=== PATIENT | male | born 1945 | race American Indian/Alaskan Native ===

== ENCOUNTER 2016-10-31 13:11 | Emergency (ER) | payer MEDICARE ==
[2016-10-31 14:41] LABS: Basophils % (Auto) 0.4 % (0.0-1.8); Eosinophils % (Auto) 0.8 % (0.0-4.3); Hematocrit 39.3 % (35.5-45.6); Hemoglobin 13.3 gm/dl (11.8-15.2); Mean Corpuscular HGB Conc 34 % (32-34); Mean Corpuscular Hemoglobin 29 pg (28-32); Mean Corpuscular Volume 87 fl (84-94); Platelet Count 146 K/mm3 (140-440); Red Blood Count 4.54 M/mm3 (3.65-5.03); Red Cell Distribution Width 14.5 % (13.2-15.2); White Blood Count 10.3 K/mm3 (4.5-11.0)
[2016-10-31 14:52] LABS: Anion Gap 19 mmol/L; BUN/Creatinine Ratio 10.55; Blood Urea Nitrogen 19 mg/dL (9-20); Calcium 9.2 mg/dL (8.4-10.2); Carbon Dioxide 23 mmol/L (22-30); Chloride 101.6 mmol/L (98-107); Glucose 221 mg/dL (75-100); INR 1.03 (0.87-1.13); Potassium 4.3 mmol/L (3.6-5.0); Sodium 139 mmol/L (137-145)
[2016-10-31] MEDS ORDERED: TESSALON PERLES PO ONE (21:34)
--- NOTE | 2016-10-31 21:58 | Emergency Department Report ---
ED Chest Pain HPI - General Chief Complaint: Chest Pain Stated Complaint: CHEST CONGESTION/COUGH AND COLD Time Seen by Provider: 10/31/16 21:24 Source: patient, family Mode of arrival: Ambulatory Limitations: No Limitations - History of Present Illness Initial Comments: 71 yo male with a past medical history of diabetes, [place] with stenting, hypertension, and chronic renal sufficiency presents to the hospital with complaints of chest pain and cough. Patient has had a dry cough for about 3 weeks but increased last 3 days. Patient complained of sharp chest pain while lying supine at night similar to his previous angina pain. Patient take 4 nitroglycerin last night stating that it helped relieve pain within 5 minutes of taking the medication. Last dose was at 3 AM. No chest pain reported while up and ambulating throughout the day today. No reports of fever, nausea, vomiting, or diaphoresis. Patient required angioplasty in April with additional stent placement and required replacement by Dr. Campos in May. His cardiologists are [facility]. Multiple family members with similar symptoms. - Related Data Home Medications Medication Instructions Recorded Confirmed Last Taken Allopurinol 1 tab PO DAILY 01/24/15 10/31/16 10/31/16 Aspirin/Dipyridamole [Aggrenox 25 1 cap PO DAILY 01/24/15 10/31/16 10/31/16 mg-200 mg Capsule] Famotidine 1 tab PO BID 01/24/15 10/31/16 10/31/16 Ferrous Sulfate 1 tab PO DAILY 01/24/15 10/31/16 10/31/16 Fish Oil + D3 Softgel 1 cap PO DAILY 01/24/15 10/31/16 10/31/16 Metoprolol Tartrate 1 tab PO BID 01/24/15 10/31/16 10/31/16 NIFEdipine [NIFEdipine ER] 60 mg PO DAILY 01/24/15 10/31/16 10/31/16 Ranolazine [Ranexa] 1 tab PO BID 01/24/15 10/31/16 10/31/16 Rosuvastatin Calcium [Crestor] 10 mg PO DAILY 01/24/15 10/31/16 10/31/16 Saxagliptin HCl/Metformin HCl 5 - 1,000 mg PO DAILY 01/24/15 10/31/16 10/31/16 [Kombiglyze XR 5-1,000 mg] Vitamin B12 1,000 mcg PO DAILY 01/24/15 10/31/16 10/31/16 Vitamin D3 2,000 units PO DAILY 01/24/15 10/31/16 10/31/16 glipiZIDE [Glipizide] 1 tab PO BID 01/24/15 10/31/16 10/31/16 Doxazosin 2 mg PO DAILY 01/26/15 10/31/16 10/31/16 Integra Plus Capsule 1 cap PO DAILY 01/26/15 10/31/16 10/31/16 Previous Rx's Medication Instructions Recorded Last Taken Type Azithromycin [Zithromax Z-JHOAN] 1 dose PO DAILY 5 Days 10/31/16 Unknown Rx Promethazine /Codeine 5 ml PO Q6H PRN #20 udc 10/31/16 Unknown Rx [Phenergan/Codeine 6.25-10 mg/5 ml] Allergies Allergy/AdvReac Type Severity Reaction Status Date / Time No Known Allergies Allergy Verified 10/31/16 21:39 Heart Score - HEART Score History: Slightly suspicious EKG: Non-specific Age: > 65 Risk factors: > 3 risk factors or hx of atherosclerotic disease Troponin: < normal limit HEART Score: 5 ED Review of Systems ROS: Stated complaint: CHEST CONGESTION/COUGH AND COLD Other details as noted in HPI Comment: All other systems reviewed and negative Other: Constitutional: No fevers chills Eyes: No eye pain visual changes ENT: No ear pain or throat pain Neck: Denies pain Respiratory: as per hpi Cardiovascular: Denies palpitations, syncope GI: Denies abdominal pain, nausea, vomiting, diarrhea : Denies dysuria Musculoskeletal: Denies back pain Skin: Denies rash, lesions, erythema Neurologic: Denies headache, numbness, weakness Psychiatric: Denies suicidal ideation, hallucinations ED Past Medical Hx - Past Medical History Previous Medical History?: Yes Hx Hypertension: Yes Hx Heart Attack/AMI: Yes () Hx Diabetes: Yes Hx Renal Disease: Yes (stage 3) Hx Asthma: No Hx HIV: No - Surgical History Hx Coronary Stent: Yes (X1 2008) Hx Internal Defibrillator: Yes (2008) Additional Surgical History: Angioplasty with additional stents April 2016 - Social History Smoking Status: Never Smoker Substance Use Type: None - Medications Home Medications: Home Medications Medication Instructions Recorded Confirmed Last Taken Type Allopurinol 1 tab PO DAILY 01/24/15 10/31/16 10/31/16 History Aspirin/Dipyridamole [Aggrenox 25 1 cap PO DAILY 01/24/15 10/31/16 10/31/16 History mg-200 mg Capsule] Famotidine 1 tab PO BID 01/24/15 10/31/16 10/31/16 History Ferrous Sulfate 1 tab PO DAILY 01/24/15 10/31/16 10/31/16 History Fish Oil + D3 Softgel 1 cap PO DAILY 01/24/15 10/31/16 10/31/16 History Metoprolol Tartrate 1 tab PO BID 01/24/15 10/31/16 10/31/16 History NIFEdipine [NIFEdipine ER] 60 mg PO DAILY 01/24/15 10/31/16 10/31/16 History Ranolazine [Ranexa] 1 tab PO BID 01/24/15 10/31/16 10/31/16 History Rosuvastatin Calcium [Crestor] 10 mg PO DAILY 01/24/15 10/31/16 10/31/16 History Saxagliptin HCl/Metformin HCl 5 - 1,000 mg PO DAILY 01/24/15 10/31/16 10/31/16 History [Kombiglyze XR 5-1,000 mg] Vitamin B12 1,000 mcg PO DAILY 01/24/15 10/31/16 10/31/16 History Vitamin D3 2,000 units PO DAILY 01/24/15 10/31/16 10/31/16 History glipiZIDE [Glipizide] 1 tab PO BID 01/24/15 10/31/16 10/31/16 History Doxazosin 2 mg PO DAILY 01/26/15 10/31/16 10/31/16 History Integra Plus Capsule 1 cap PO DAILY 01/26/15 10/31/16 10/31/16 History Azithromycin [Zithromax Z-JHOAN] 1 dose PO DAILY 5 Days 10/31/16 Unknown Rx Promethazine /Codeine 5 ml PO Q6H PRN #20 udc 10/31/16 Unknown Rx [Phenergan/Codeine 6.25-10 mg/5 ml] ED Physical Exam - General Limitations: No Limitations - Other Other exam information: General: No limitations, patient is alert in no acute distress Head exam: Atraumatic, normocephalic Eyes exam: Normal appearance, pupils equal reactive to light ENT: Moist mucous membrane, normal oropharynx Neck exam: Normal inspection, full range of motion, no meningismus nontender Respiratory exam: Clear to auscultation bilateral, no wheezes, rales, crackles Cardiovascular: Normal rate and rhythm, normal heart sounds, chest wall nontender Abdomen: Soft, nondistended, and nontender, with normal bowel sounds, no rebound, or guarding Extremity: Full range of motion normal inspection no deformity, no calf tenderness or edema Back: Normal Inspection, full range of motion, no tenderness Neurologic: Alert, oriented x3, cranial nerves intact, no motor or sensory deficit Psychiatric: normal affect, normal mood Skin: Warm, dry, intact ED Course Vital Signs 10/31/16 10/31/16 10/31/16 13:45 21:29 21:30 Temperature 98.6 F Pulse Rate 93 H 77 Respiratory 20 25 H Rate Blood Pressure 128/62 151/70 O2 Sat by Pulse 97 97 97 Oximetry 10/31/16 10/31/16 10/31/16 21:40 21:45 22:00 Temperature Pulse Rate 79 74 75 Respiratory 18 26 H Rate Blood Pressure 151/70 143/68 O2 Sat by Pulse 99 Oximetry 10/31/16 10/31/16 10/31/16 22:15 22:30 22:45 Temperature Pulse Rate 77 79 77 Respiratory 20 14 27 H Rate Blood Pressure 134/68 138/66 124/60 O2 Sat by Pulse 98 98 97 Oximetry 10/31/16 10/31/16 23:00 23:15 Temperature Pulse Rate 77 74 Respiratory 22 32 H Rate Blood Pressure 124/61 116/55 O2 Sat by Pulse 92 95 Oximetry - Reevaluation(s) Reevaluation #1: 10/31/16 23:40 Patient states no improvement in his cough after taking Tessalon Perles. He does state that he has not had any repeat pain throughout the day since taken the final NTG at 3 AM and prefers to go home and follow up with his blow pit helper as an outpatient. - Consultations Consultation #1: 10/31/16 22:10 case d/w Dr Campos. Since pain is atypical and patient has to be cardiac enzymes she states the pain free patient can go home but to call his blow pit helper in a.m. for follow-up this week. EKG findings also discussed BELIA score - Belia Score Age > 65: (1) Yes Aspirin use within the Past 7 Days: (1) Yes 3 or more CAD Risk Factors: (1) Yes 2 or more Angina events in past 24 hrs: (1) Yes Known CAD with more than 50% Stenosis: (1) Yes Elevated Cardiac Markers: (0) No ST Deviation Greater than 0.5mm: (0) No BELIA Score: 5 ED Medical Decision Making - Lab Data Result diagrams: 10/31/16 14:20 10/31/16 14:20 Lab Results 10/31/16 10/31/16 10/31/16 Range/Units 14:20 14:20 14:20 WBC 10.3 (4.5-11.0) K/mm3 RBC 4.54 (3.65-5.03) M/mm3 Hgb 13.3 (11.8-15.2) gm/dl Hct 39.3 (35.5-45.6) % MCV 87 (84-94) fl MCH 29 (28-32) pg MCHC 34 (32-34) % RDW 14.5 (13.2-15.2) % Plt Count 146 (140-440) K/mm3 Lymph % (Auto) 10.6 L (13.4-35.0) % [place] % (Auto) 7.7 H (0.0-7.3) % Eos % (Auto) 0.8 (0.0-4.3) % Baso % (Auto) 0.4 (0.0-1.8) % Lymph # 1.1 L (1.2-5.4) K/mm3 [place] # 0.8 (0.0-0.8) K/mm3 Eos # 0.1 (0.0-0.4) K/mm3 Baso # 0.0 (0.0-0.1) K/mm3 Seg Neutrophils % 80.5 H (40.0-70.0) % Seg Neutrophils # 8.3 H (1.8-7.7) K/mm3 PT 14.0 (12.2-14.9) Sec. INR 1.03 (0.87-1.13) Sodium 139 (137-145) mmol/L Potassium 4.3 (3.6-5.0) mmol/L Chloride 101.6 (98-107) mmol/L Carbon Dioxide 23 (22-30) mmol/L Anion Gap 19 mmol/L BUN 19 (9-20) mg/dL Creatinine 1.8 H (0.8-1.5) mg/dL Estimated GFR 45 ml/min BUN/Creatinine Ratio 10.55 % Glucose 221 H (75-100) mg/dL Calcium 9.2 (8.4-10.2) mg/dL Troponin T < 0.010 (0.00-0.029) ng/mL 10/31/16 10/31/16 Range/Units 16:47 19:39 WBC (4.5-11.0) K/mm3 RBC (3.65-5.03) M/mm3 Hgb (11.8-15.2) gm/dl Hct (35.5-45.6) % MCV (84-94) fl MCH (28-32) pg MCHC (32-34) % RDW (13.2-15.2) % Plt Count (140-440) K/mm3 Lymph % (Auto) (13.4-35.0) % [place] % (Auto) (0.0-7.3) % Eos % (Auto) (0.0-4.3) % Baso % (Auto) (0.0-1.8) % Lymph # (1.2-5.4) K/mm3 [place] # (0.0-0.8) K/mm3 Eos # (0.0-0.4) K/mm3 Baso # (0.0-0.1) K/mm3 Seg Neutrophils % (40.0-70.0) % Seg Neutrophils # (1.8-7.7) K/mm3 PT (12.2-14.9) Sec. INR (0.87-1.13) Sodium (137-145) mmol/L Potassium (3.6-5.0) mmol/L Chloride (98-107) mmol/L Carbon Dioxide (22-30) mmol/L Anion Gap mmol/L BUN (9-20) mg/dL Creatinine (0.8-1.5) mg/dL Estimated GFR ml/min BUN/Creatinine Ratio % Glucose (75-100) mg/dL Calcium (8.4-10.2) mg/dL Troponin T < 0.010 < 0.010 (0.00-0.029) ng/mL - EKG Data -: EKG Interpreted by Me (sinus rate 90 possible septal infarct lateral T-wave inversions) - EKG Data When compared to previous EKG there are: previous EKG unavailable - Radiology Data Radiology results: image reviewed (chest x-ray: No acute findings) - Medical Decision Making Patient has elevation in creatinine however reports a history of chronic renal insufficiency. No previous available for comparison. EKG shows lateral T-wave inversions. This was discussed with Dr. Campos. Cardiac enzymes negative 3 , pain atypical, no chest pain events throughout the day while ambulating therefore, patient was discharged from treatment for URI/bronchitis symptoms and cough suppressant. I have patient follow up with cardiology has been encouraged - Differential Diagnosis [place], pneumonia, bronchitis, URI, atypical chest pain Critical Care Time: No Critical care attestation.: If time is entered above; I have spent that time in minutes in the direct care of this critically ill patient, excluding procedure time. ED Disposition Clinical Impression: Acute bronchitis, Atypical chest pain, Renal insufficiency Disposition: DC-01 TO HOME OR SELFCARE Is pt being admited?: No Does the pt Need Aspirin: No Condition: Stable Instructions: Acute Bronchitis (ED), Chest Pain (ED) Additional Instructions: Take the medication as prescribed. Please note that promethazine with codeine may cause drowsiness. Do not drive or operate heavy machinery while taking this medication. Call your blow pit helper tomorrow for follow-up this week. Please return if symptoms worsen. Prescriptions: Azithromycin [Zithromax Z-JHOAN] 1 dose PO DAILY 5 Days Promethazine /Codeine [Phenergan/Codeine 6.25-10 mg/5 ml] 5 ml PO Q6H PRN #20 udc PRN Reason: cough Referrals: your, blow pit helper [Other] - 24 Hours PRIMARY CARE,MD [Primary Care Provider] - 2-3 Days Time of Disposition: 23:44
[2016-11-01 00:30] VITALS: BP 128/76
--- NOTE | 2016-11-01 08:19 | XRay Report ---
XRAY CHEST TWO VIEWS: 10/31/16 21:48 CLINICAL: Cough.Chest pain. COMPARISON: None FINDINGS: The heart is normal size. Pacer leads in heart. Median sternotomy wires and mediastinal surgical clips. Normal pulmonary vessels. The lungs are normally expanded and clear.The bones and soft tissues are unremarkable. IMPRESSION: Normal chest status post CABG and with a pacemaker.
== END 2016-11-01 | disposition home or self-care (01) ==
LOC: ED 13:11
DX: J20.9 Acute bronchitis, unspecified (principal); R07.89 Other chest pain; I25.2 Old myocardial infarction; I12.9 Hypertensive chronic kidney disease with stage 1 through stage 4 chronic kidney disease, or unspecified chronic kidney disease; E11.22 Type 2 diabetes mellitus with diabetic chronic kidney disease; N18.3 Chronic kidney disease, stage 3 (moderate); Z95.1 Presence of aortocoronary bypass graft; Z79.82 Long term (current) use of aspirin
CPT/HCPCS: 36415; 71020; 80048; 84484; 85025; 85610; 93005; 93010

== ENCOUNTER 2018-09-05 10:38 | Day surgery (SDC) | payer BC, OTHER ==
[~2018-09-05 10:38] MED LIST: NACL 0.9% 1000 ML 1,000 ML IV SCH
--- NOTE | 2018-09-05 12:01 | Anesthesia Day of Surgery ---
Anesthesia Day of Surgery - Day of Surgery Patient Examined: Yes Patient H&P Reviewed: Yes Patient is NPO: Yes Beta Blockers: Yes
--- NOTE | 2018-09-05 12:04 | Anesthesia Consultation ---
Anesthesia Consult and Med Hx Date of service: 09/05/18 - Airway Anesthetic Teeth Evaluation: Good ROM Head & Neck: Adequate Mental/Hyoid Distance: Adequate Mallampati Class: Class II Intubation Access Assessment: Probably Good - Pre-Operative Health Status ASA Pre-Surgery Classification: ASA3 Proposed Anesthetic Plan: MAC - Pulmonary Hx Smoking: No Hx Asthma: No Hx Sleep Apnea: No - Cardiovascular System Hx Hypertension: Yes Hx Coronary Artery Disease: Yes (Saw cardiolologist Saturday-all good per pt. ECHO and NST) Hx Heart Attack/AMI: Yes () Hx Percutaneous Transluminal Coronary Angioplasty (PTCA): Yes (stents-2016, s/p CABG-1983) Hx Internal Defibrillator: Yes (2008) Hx Valvular Heart Disease: Yes (moderate MR) - Central Nervous System CVA: Yes (TIA) Hx Psychiatric Problems: No - Endocrine Hx Renal Disease: Yes (stage 3) Hx Non-Insulin Dependent Diabetes: Yes - Hematic Hx Anemia: Yes - Other Systems Hx Alcohol Use: Yes Hx Cancer: No
[2018-09-05] MEDS ORDERED: DIPRIVAN 10 MG/ML IV ONE ×2 (12:37)
--- NOTE | 2018-09-05 13:27 | Procedure Note ---
Date of procedure: 09/05/18 Pre-op diagnosis: Colon Polyp Screening Post-op diagnosis: other (Two Small (possibly Hperplastic) Polyps in the Left colon/Few,Proximal Colon diverticuli/ Mild to Moderate Internal Hemorrhoid/ Prep was fair to poor (mucosa was washed with copious amount of water)) Procedure: Colonoscopy with Biopsy [place] [facility] [place] ALEXY MADISON Estimated blood loss: minimal Pathology: list Specimen disposition: to lab Condition: stable Disposition: same day (Encourage fiber intake. Avoid aspirin and NSAID for 5 days. Follow up in 1 to 2 weeks ([phone]).)
[2018-09-05] MEDS ORDERED: WATER FOR IRRIG STERILE IR ONE (13:29)
--- NOTE | 2018-09-05 13:37 | Operative Report ---
PROCEDURE: Colonoscopy with biopsy. INDICATIONS: This is a 73-year-old -[place] gentleman with an underlying history of diabetes mellitus type 2, coronary artery disease, status post CABG, status post cardiac stents, and hypertension. He has prior history of colon polyps. Colonoscopy was done as part of colon polyp screening. The procedure was done at [facility]. DESCRIPTION OF PROCEDURE: The procedure was done after getting informed consent with MAC anesthesia. Initial rectal exam was unremarkable. Instrument was passed through the rectum onto the cecum, which was identified by the ileocecal valve and the appendiceal orifice. Visualization was fair to slightly poor. The mucosa was washed with copious amounts of water. The scope was retroflexed and then withdrawn to the hepatic flexure and reintroduced for better visualization. No additional pathology was noted in the proximal colon. There were 2-3 small diverticula noted in the proximal colon, the transverse colon showed normal mucosa, and the left colon, which involved the distal descending colon and the proximal sigmoid, there were two small polyps noted, possibly hyperplastic, which were removed by cold biopsy and the rectum showed some mild to moderate internal hemorrhoid in the retroverted view. There was minimal bleeding associated with the procedure from the biopsy sites. No complications associated with the procedure. ASSESSMENT: Colon polyps screening. Two small left colon polyps noted, possibly hyperplastic, removed by cold biopsy, a few proximal diverticular disease, and mild to moderate internal hemorrhoid. Prep was fair to slightly poor. The mucosa was washed with copious amounts of water. No additional pathology was noted. Plan is to encourage the patient to take fiber supplements, avoid aspirin, and aspirin-related products for the next few days and follow up in the office in 1-2 weeks' time. The procedure was done in the GI lab in the presence and assistance of an RN, Gillian Sheikh and razia Villarreal as well as with the assistance of anesthesia. JOB# [id number] TABITHA/MICAH
[2018-09-05 14:20] VITALS: BP 138/62
== END 2018-09-05 10:39 | disposition home or self-care (01) ==
LOC: GIO 10:38
DX: Z12.11 Encounter for screening for malignant neoplasm of colon (principal); D12.4 Benign neoplasm of descending colon; K63.5 Polyp of colon; K57.30 Diverticulosis of large intestine without perforation or abscess without bleeding; K64.8 Other hemorrhoids; I12.9 Hypertensive chronic kidney disease with stage 1 through stage 4 chronic kidney disease, or unspecified chronic kidney disease; E11.22 Type 2 diabetes mellitus with diabetic chronic kidney disease; N18.3 Chronic kidney disease, stage 3 (moderate); I25.2 Old myocardial infarction; I25.10 Atherosclerotic heart disease of native coronary artery without angina pectoris; E78.00 Pure hypercholesterolemia, unspecified; Z98.890 Other specified postprocedural states; Z79.899 Other long term (current) drug therapy; Z79.82 Long term (current) use of aspirin; Z95.1 Presence of aortocoronary bypass graft; Z72.89 Other problems related to lifestyle; Z86.2 Personal history of diseases of the blood and blood-forming organs and certain disorders involving the immune mechanism; Z86.73 Personal history of transient ischemic attack (TIA), and cerebral infarction without residual deficits
CPT/HCPCS: 45380; 82962; 88305; J2704; J7030